=== PATIENT | female | born 1975 | race Asian ===

== ENCOUNTER 2020-10-19 21:41 | Outpatient (REF) | payer OTHER, SELFPAY ==
[2020-10-19 22:44] LABS: Influenza A PCR NEGATIVE (Negative); Influenza B PCR NEGATIVE (Negative); Resp Syncy Virus RNA Qual PCR NEGATIVE (Negative); SARS COV2 PCR INHOUSE NEGATIVE (Negative)
== END 2020-10-19 21:42 | disposition home or self-care (01) ==
LOC: HO.LAB 21:41
PROVIDERS: Visit Provider Internal Medicine
DX: Z20.822 Contact with and (suspected) exposure to COVID-19 (principal)
CPT/HCPCS: 0241U; 36415

== ENCOUNTER 2020-11-02 18:23 | Outpatient (REF) | payer OTHER, SELFPAY ==
[2020-11-02 19:25] LABS: Influenza A PCR NEGATIVE (Negative); Influenza B PCR NEGATIVE (Negative); Resp Syncy Virus RNA Qual PCR NEGATIVE (Negative); SARS COV2 PCR INHOUSE NEGATIVE (Negative)
== END 2020-11-02 18:24 | disposition home or self-care (01) ==
LOC: HO.LAB 18:23
PROVIDERS: PCP Family Medicine; Visit Provider Physician Assistant Medical
DX: Z20.822 Contact with and (suspected) exposure to COVID-19 (principal)
CPT/HCPCS: 0241U; 36415

== ENCOUNTER 2020-11-30 14:43 | Outpatient (REF) | payer OTHER, SELFPAY | END 2020-11-30 14:44 | disposition home or self-care (01) | LOC: HO.LAB 14:43 | PROVIDERS: Visit Provider Internal Medicine | DX: Z13.89 Encounter for screening for other disorder (principal) ==

== ENCOUNTER 2020-11-30 15:02 | Outpatient (REF) | payer OTHER, SELFPAY ==
[2020-11-30 15:45] LABS: COVID-19 Test Negative (Negative)
== END 2020-11-30 15:03 | disposition home or self-care (01) ==
LOC: HO.LAB 15:02
PROVIDERS: Visit Provider Emergency Medicine
DX: J02.9 Acute pharyngitis, unspecified (principal); Z20.822 Contact with and (suspected) exposure to COVID-19
CPT/HCPCS: 36415; 87635; C9803

== ENCOUNTER 2025-06-12 12:18 | Outpatient (REF) | payer OTHER, SELFPAY ==
--- NOTE | ~2025-06-12 | XR_ITS ---
CLINICAL HISTORY: bilateral knee pain Two-view right knee Two-view left knee Comparison: None provided Findings: Bones intact. No dislocations. No significant loss of joint space, osteophytes, or erosions. No joint effusion. No radiopaque foreign body. IMPRESSION: 1. No acute findings. This document has been electronically signed by: Isamar Hunt MD on 06/13/2025 15:14:35
== END 2025-06-12 12:19 | disposition home or self-care (01) ==
LOC: HO.XRAY 12:18
PROVIDERS: PCP Family Medicine; Visit Provider Internal Medicine
DX: M25.562 Pain in left knee (principal); M25.561 Pain in right knee; R59.1 Generalized enlarged lymph nodes
CPT/HCPCS: 73560; 96127

== ENCOUNTER 2025-06-12 12:18 | Outpatient (AMB) | payer OTHER, SELFPAY ==
--- NOTE | 2025-06-12 12:42 | MHC.PC.OV ---
Vital Signs 06/12/25 12:45 Height 5 ft 2 in Weight 167 lb 6 oz BMI 30.6 BP 136/90 H Blood Pressure Location Rt brachial Position Sitting Respiration 18 Pulse 77 Pulse Source Pulse Oximeter Temp 97.1 F Temp Source Temporal Artery Scan Pulse Oximetry (%) 98 Oxygen Delivery Method Room Air Intake Visit Reasons: new patient Pharmacist Required: No Accompanied by: Self / Same As Patient Allergies No Known Allergies Allergy (Verified 06/12/25 13:04) Medication List - Last Reconciled 06/12/25 by Ashley Aguiar MD No Known Home Meds Tobacco use date assessed: 06/12/25 Dental Screening Dental Screen Date: 06/12/25 Did you have a dental visit in the last 12 months?: Yes Did you have a dental problem in the last 6 months where you did not have access to dental care?: No Was dental information given to patient?: Patient has dentist HPI HPI Comments History of Present Illness Details Patient is here to establish care. She complains of a neck lymphadenopathy that has been present for awhile in her posterior neck. Will have an ultrasound. She also complains of bilateral knee pain more prominent when she exercises and more prominent in the left. Has not had a colonoscopy. Pap smear was over 5 years ago. Does not recall her Tdap vaccine. Mammogram is due. She has a vegetarian diet and vitamin B12 will be checked. 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 1. Little interest or pleasure in doing things: not at all 2. Feeling down, depressed, or hopeless: not at all 3. Trouble falling or staying asleep, or sleeping too much: not at all 4. Feeling tired or having little energy: not at all 5. Poor appetite or overeating: not at all 6. Feeling bad about yourself - or that you are a failure or have let yourself or your family down: not at all 7. Trouble concentrating on things, such as reading the newspaper or watching television: not at all 8. Moving or speaking so slowly that other people could have noticed. Or the opposite - being so fidgety or restless that you have been moving around a lot more than usual: not at all 9. Thoughts that you would be better off or of hurting yourself in some way: not at all Total score: 0 Depression Screening Interpretation: Negative Depression Screening Done: Yes 27766 - PHQ-9 Billing: Yes Source: Developed by Drs. Zhou Rushing, Leana Gonzales, Abbe aGn and colleagues, with an educational desmond from [employer]. Thrive Questionnaire Date Thrive assessed: 06/12/25 I am a: Patient What is your living situation today?: I have a steady place to live Within the past 12 months, did the food you bought not last and you didn't have the money to get more?: Never true Within the past 12 months, did you worry whether your food would run out before you got money to buy more?: Never true Do you have trouble paying for medicines?: No Do you have trouble getting transportation to medical appointments?: No Do you have trouble paying your heating and electricity bill?: No Do you have trouble taking care of your child, family member or friend?: No Do you have trouble with day-to-day activities such as bathing, preparing meals, shopping, managing finances, etc.?: No Are you currently unemployed and looking for a job?: No Are you interested in more education?: No Please select the resources that you would like help with: None Currently or been in a relationship where the following occur: No concerns reported THRIVE Score: 0 AUDIT C Alcohol Use Questionnaire (AUDIT-C) 1. How often do you have a drink containing alcohol?: Monthly or less 2. How many drinks containing alcohol do you have on a typical day when you are drinking?: 1 or 2 3. How often do you have six or more drinks on one occasion?: Never Total Score: 1 Score Reviewed/Action Taken: No ROMA-7 AMB Questionnaire ROMA-7 Date ROMA - 7 assessed: 06/12/25 Feeling nervous, anxious, or on edge: 0 = Not at all Not being able to stop or control worryin = Not at all Worrying too much about different things: 0 = Not at all Trouble relaxin = Not at all Being so restless that it is hard to sit still: 0 = Not at all Becoming easily annoyed or irritable: 0 = Not at all Feeling afraid as if something awful might happen: 0 = Not at all Total ROMA-7 score (0-4 normal; 5-9 mild; 10-14 moderate; 15-21 severe): 0 Source: Developed by Drs. Zhou Rushing, Leana Gonzales, Abbe Gan and colleagues, with an educational desmond from [employer]. ROMA-7 Assessment Billing ROMA-7 Assessment Tool: ROMA-7 Assessment 41295 Review of Systems Const All systems reviewed & are unremarkable except as noted in HPI and below Card Denies chest pain at rest, Denies chest pain with activity, Denies edema, Denies irregular heart rhythm, Denies claudication, Denies dyspnea, Denies dyspnea on exertion, Denies orthopnea, Denies paroxysmal nocturnal dyspnea and Denies slow heart rate Resp Denies cough, Denies dyspnea and Denies dyspnea on exertion Physical exam (Primary Care) Vital Signs: Last Vital Signs Temp 97.1 F 06/12/25 12:45 Pulse 77 06/12/25 12:45 Resp 18 06/12/25 12:45 BP 136/90 H 06/12/25 12:45 Pulse Ox 98 06/12/25 12:45 Oxygen Delivery Method Room Air 06/12/25 12:45 BMI result Body Mass Index 30.6 BMI Assessment/Plan discussion: High BMI High, discussed plan: lifestyle, weight reduction, dietary and physical activity Tobacco/Smoking Status: Tobacco use Status Tobacco use date assessed 06/12/25 06/12/25 12:55 Patient Tobacco Use Status Never used Tobacco 06/12/25 12:55 e-Cigarette/Vaping Use Never Used 06/12/25 12:55 PHQ-9: PHQ-9 Score PHQ-9: Total score 0 06/12/25 12:55 Depression Screening Interpretation: Negative Thrive Assessment: Date of Thrive Assessment Date Thrive assessed 06/12/25 06/12/25 12:55 Currently or been in a relationship where the following occur: No concerns reported Neck Neck: Yes lymphadenopathy (posterior neck, nontender, mobile) Resp Effort & Inspection: normal respiratory effort Auscultation: clear to auscultation bilaterally Cardio Jugular venous distension: no JVD Rate: regular rate Rhythm: regular rhythm Heart sounds: S1 normal heart sound present and S2 normal heart sound present Extrem General: Yes full ROM Coding Level of Care Code New Pt Level 3 (15869) Complex EM visit Add On G2211 Diagnoses Left knee pain M25.562 Right knee pain M25.561 Head and neck lymphadenopathy R59.1 Additional Codes PHQ-9 - 27329 - PHQ-9 Billing: Yes ([id number]) ROMA-7 Assessment Billing - ROMA-7 Assessment Tool: ROMA-7 Assessment 41887 ([id number]) Time Spent (min) 20 Assessment & Plan Assessment & Plan (1) Left knee pain: Code(s): M25.562 - Pain in left knee Category: Medical (2) Right knee pain: Code(s): M25.561 - Pain in right knee Category: Medical (3) Head and neck lymphadenopathy: Code(s): R59.1 - Generalized enlarged lymph nodes Category: Medical Plan Labs ordered. X-ray ordered. Ultrasound ordered. Orders: Orders Comprehensive Ute. Panel Fast Today E66.9 - Obesity, unspecified Lipid Panel Today E66.9 - Obesity, unspecified US soft tiss head and/or neck Today R59.1 - Generalized enlarged lymph nodes MM tomosynthesis screening BI Today Z12.31 - Encounter for screening mammogram for malignant neoplasm of breast Complete Blood Count Auto Diff Today E66.9 - Obesity, unspecified Thyroid Stimulating Hormone Today E66.9 - Obesity, unspecified Vitamin B12 and Folate Today E53.8 - Deficiency of other specified B group vitamins, Z78.9 - Other specified health status Vitamin D 25-OH Total Today E55.9 - Vitamin D deficiency, unspecified XR knee LT 2V Today M25.562 - Pain in left knee XR knee RT 2V Today M25.561 - Pain in right knee Referrals Open Access Screening Colonoscopy Referral Z12.12 - Encounter for screening for malignant neoplasm of rectum PHYSICAL EDUCATION DEPARTMENT CHAIR Referral Z12.4 - Encounter for screening for malignant neoplasm of cervix
[2025-06-12 12:45] VITALS: BP 136/90; PULSE 77; RESP 18; TEMP 36.2; O2SAT 98; BMI 30.6
--- OUTSIDE RECORDS SUMMARY | 2025-06-12 14:31 | XMS_ITS | Clinical Summary ---
Author Organization [facility] Address [address] [place] [address] Care Team Providers Care Sap Portal Consultant Name Role Phone Pcp, No Primary Care Provider Unavailabl e Immunizations Immunization Administration Dates Next Due Covid-19 mRNA Primary Series Vaccine - Moderna 0.5 mL Full Dose 06/24/2021 Social History Tobacco Use Types Packs/Day Years Used Date Smoking Tobacco: Never Assessed Comments Unknown Sex and Gender Information Value Date Recorded Sex Assigned at Not on file Legal Sex Female 2:38 PM EDT Gender Identity Not on file Sexual Orientation Not on file Plan of Treatment Health Maintenance Due Date Last Done Comments Hepatitis C Virus Screening 1973 HIV Screening 1986 DTaP/Tdap/Td Vaccines (1 - Tdap) 1992 Hepatitis B Vaccines (1 of 3 - 19+ 3-dose series) 1992 Pap Smear (Ages 21-65) 1994 Mammogram 2013 Colonoscopy 2018 Pneumococcal Vaccines 50+ (1 of 1 - PCV) 2023 Zoster (Shingles) Vaccine (1 of 2) 2023 Influenza Vaccine 04/25/2025 10/28/2019 COVID-19 Vaccine ( - 2024- season) 2025, 10/22/2020 Insurance [facility] PPO Care Teams Sap Portal Consultant Relationship Specialty Start Date End Date Pcp, No PCP - General 04/03/25
--- OUTSIDE RECORDS SUMMARY | 2025-06-12 14:31 | XMS_ITS ---
Author Name [facility] Organization Unknown Care Team Organization Name Specialty Phone Email Start Date End Da te [facility] NO PCP Primary Care 04/03/2025 [facility] 06/24/2021 06/24/2021
== END 2025-06-12 13:34 | disposition home or self-care (01) ==
LOC: HO.HMCH 12:20
PROVIDERS: PCP Family Medicine; Visit Provider Internal Medicine
DX: M25.562 Pain in left knee (principal); M25.561 Pain in right knee; R59.1 Generalized enlarged lymph nodes

== ENCOUNTER → 2025-06-12 13:45 | Outpatient (BNV) | payer OTHER, SELFPAY | PROVIDERS: PCP Family Medicine; Visit Provider Radiology Diagnostic Radiology | DX: M25.569 Pain in unspecified knee (principal) | CPT/HCPCS: 73560 ==

== ENCOUNTER 2025-07-03 07:16 | Outpatient (REF) | payer OTHER, SELFPAY ==
--- NOTE | ~2025-07-03 | MM_ITS ---
EXAMINATION: MM SCREENING DIGITAL BREAST TOMOSYNTHESIS, BILATERAL CLINICAL INFORMATION: Screening. Asymptomatic. COMPARISON: Mammography: Baseline. TECHNIQUE: Digital breast mammography with tomosynthesis is performed in both the craniocaudal and mediolateral oblique views along with computer-aided detection (CAD). FINDINGS: The breasts are heterogeneously dense, which may obscure small masses. Left: Focal asymmetry central inner breast. No suspicious calcifications or other abnormal findings. Right: There are no significant masses, abnormal calcifications, or other abnormalities. MM/MM tomosynthesis screening BI IMPRESSION: Additional imaging is recommended ASSESSMENT: BI-RADS Category 0: Incomplete - Need additional Imaging Evaluation RECOMMENDATION: 1. Additional views of the left breast. 2. Targeted ultrasound if warranted after review of the additional views. 3. Radiology department staff will contact the patient for additional imaging. Additional Imaging required Electronically signed by: Susy Holm DO 07/04/2025 04:32 PM EDT
--- NOTE | ~2025-07-03 | US_ITS ---
EXAMINATION: US SOFT TISSUE HEAD AND NECK CLINICAL INFORMATION: Enlarged lymph nodes. COMPARISON: None available. TECHNIQUE: Linear transducer muse-scale and color Doppler examination with attention to the region of the posterior neck FINDINGS: There is a 1.7 x 0.6 x 1.6 cm solid hyperechoic lesion. This has some central flow. Differential would include a lipoma and atypical appearing lymph node. There is a second 1.1 x 0.3 x 0.7 cm normal-appearing lymph node. This is normal in size, demonstrates normal ultrasound morphology echogenic fatty hilum and normal hilar flow. US/US soft tiss head and/or neck IMPRESSION: 1.7 x 0.6 x 1.6 cm solid hyperechoic lesion, question lipoma versus atypical appearing lymph node. Additional normal-appearing lymph node measuring 1.1 x 0.3 x 0.7 cm. Electronically signed by: Lelia Mckinley MD 07/03/2025 09:37 AM EDT
[2025-07-03 07:56] LABS: MANUAL DIFF FLAG NO
[2025-07-03 08:33] LABS: Hematocrit 42.4 % (37.0-47.0); Hemoglobin 13.6 g/dl (12.0-16.0); Imm Gran Abs Auto 0.05 X10*3/uL (0.00-0.03); Imm Gran Pct Auto 0.5 % (0.0-0.4); Lymphocytes Absolute Auto 1.8 X10*3/uL (1.2-4.9); Mean Corpuscular HGB Conc 32.1 g/dl (31.0-35.0); Mean Corpuscular Hemoglobin 23.2 pg (27.0-33.0); Mean Corpuscular Volume 72.4 fL (80.0-98.0); NRBC Abs Auto 0.000 X10*3/uL (0.0-0.012); NRBC Pct Auto 0.0 /100WBC (0.0-0.2); Platelet Count 399 X10*3/uL (160-400); Red Blood Count 5.86 X10*6/uL (4.20-5.50); White Blood Count 9.5 X10*3/uL (4.8-10.8)
[2025-07-03 09:10] LABS: Alanine Aminotransferase 22 U/L (0-31); Albumin Level 4.1 g/dL (3.5-5.0); Alkaline Phosphatase 69 U/L (39-117); Anion Gap 9 (12-20); Aspartate Amino Transferase 24 U/L (5-31); Blood Urea Nitrogen 16 mg/dL (9-16); Calcium 8.8 mg/dL (8.4-10.2); Carbon Dioxide 26 mmol/L (22-29); Chloride 108 mmol/L (96-108); Cholesterol 222 mg/dL (<200); Estimated Glomerular Filt Rate > 60; HDL Cholesterol 54 mg/dL (>40); Potassium 4.1 mmol/L (3.3-5.1); Sodium 139 mmol/L (135-145); Total Protein 7.6 g/dL (6.5-8.0); Triglycerides 125 mg/dL (<150)
[2025-07-03 09:27] LABS: Thyroid Stimulating Hormone 3.47 uIU/mL (0.32-4.0)
[2025-07-03 09:34] LABS: Folate 9.4 ng/mL (> or = 4.0); Vitamin B12 447 pg/mL (200-900)
== END 2025-07-03 07:17 | disposition home or self-care (01) ==
LOC: HO.MAMMO 07:16
PROVIDERS: PCP Internal Medicine; Visit Provider Internal Medicine
DX: Z12.31 Encounter for screening mammogram for malignant neoplasm of breast (principal); E66.9 Obesity, unspecified; E11.9 Type 2 diabetes mellitus without complications; E53.8 Deficiency of other specified B group vitamins; E55.9 Vitamin D deficiency, unspecified; R59.1 Generalized enlarged lymph nodes; Z78.9 Other specified health status
CPT/HCPCS: 36415; 76536; 77063; 77067; 80053; 80061; 82306; 82607; 82746; 83036; 84443; 85025

== ENCOUNTER → 2025-07-03 07:57 | Outpatient (BNV) | payer OTHER, SELFPAY | PROVIDERS: PCP Internal Medicine; Visit Provider Radiology Diagnostic Radiology | DX: Z12.31 Encounter for screening mammogram for malignant neoplasm of breast (principal) | CPT/HCPCS: 77063; 77067 ==

== ENCOUNTER 2025-08-11 10:48 | Outpatient (REF) | payer OTHER, SELFPAY ==
--- NOTE | ~2025-08-11 | MM_ITS ---
EXAMINATION(S): 1. MM DIAGNOSTIC DIGITAL BREAST TOMOSYNTHESIS, LEFT 2. TARGETED ULTRASOUND OF THE LEFT BREAST CLINICAL INFORMATION: Callback from screening for left breast findings: asymmetry in the lower breast on the MLO view and asymmetry in the medial breast on the CC view. COMPARISON: July 03, 2025 TECHNIQUE: Digital breast tomosynthesis is performed in full field ML 90 degrees along with computer-aided detection (CAD). Synthesized 2D images are generated from the tomosynthesis. Spot compression tomosynthesis were obtained. FINDINGS: BREAST COMPOSITION: There are scattered areas of fibroglandular density. LEFT BREAST: Previously suggested asymmetry in the lower breast middle depth on MLO view and in the medial breast middle depth on the CC view are pliable with spot compression, and likely represented overlapping fibroglandular breast tissue. Targeted ultrasound of the left breast was performed at the location of the mammographic finding. The survey throughout the lower inner quadrant did not reveal suspicious sonographic findings. MM/MM tomosynthesis diagnostic LT IMPRESSION: LEFT BREAST: Negative, no evidence of malignancy. Normal interval follow-up is recommended in 12 months. ASSESSMENT: BI-RADS: Category 1: Negative RECOMMENDATION: 1 year F/U Results were provided to the patient at time of visit by the technologist. This patient's information was entered into a reminder system with a target due date for their next mammogram. Electronically signed by: Justin Keys MD 08/11/2025 11:28 AM [facility] [place]
== END 2025-08-11 10:49 | disposition home or self-care (01) ==
LOC: HO.MAMMO 10:48
PROVIDERS: PCP Internal Medicine; Visit Provider Internal Medicine
DX: N64.89 Other specified disorders of breast (principal); Z00.01 Encounter for general adult medical examination with abnormal findings; Z23 Encounter for immunization; R59.1 Generalized enlarged lymph nodes
CPT/HCPCS: 76642; 77061; 77065; 90471; 90715; 96127

== ENCOUNTER → 2025-08-11 11:20 | Outpatient (BNV) | payer OTHER, SELFPAY | PROVIDERS: PCP Internal Medicine; Visit Provider Radiology Body Imaging | DX: R92.8 Other abnormal and inconclusive findings on diagnostic imaging of breast (principal) | CPT/HCPCS: 76642; 77061; 77065 ==

== ENCOUNTER 2025-08-11 11:34 | Outpatient (AMB) | payer OTHER, SELFPAY ==
[2025-08-11 11:50] VITALS: BP 150/90; PULSE 77; RESP 18; O2SAT 99; BMI 31.0
--- NOTE | 2025-08-11 11:50 | A.OFFPC_ITS ---
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 Accompanied by: Self / Same As Patient Allergies No Known Allergies Allergy (Verified 08/11/25 12:35) Medication List - Last Reconciled 08/11/25 by Ashley Aguiar MD No Known Home Meds Tobacco use date assessed: 08/11/25 Dental Screening Dental Screen Date: 08/11/25 Did you have a dental visit in the last 12 months?: Yes Did you have a dental problem in the last 6 months where you did not have access to dental care?: No Was dental information given to patient?: Patient has dentist HPI HPI Comments History of Present Illness Details The patient is a 49-year-old female presenting for an annual physical examination. Her blood pressure today was elevated at 150/90 mmHg, which is higher than a previous borderline reading. The patient notes current stressors, including a home renovation and the stress of a breast ultrasound preceding the visit. She has a neck mass in which ultrasound shows atypical lymph node versus lipoma and I refer her to surgery. She reports persistent knee pain following an injury over the summer. She states she stopped exercising to allow it to heal, but an attempt to resume exercise caused the pain to recur, and it has not resolved since. Symptoms are aggravated by bending the knee and descending stairs. Recent blood work revealed a severe vitamin D deficiency and elevated cholesterol. Her glucose level was normal. Past surgical history is significant only for an ankle surgery. Her mother had congenital hypothyroidism, pancreatic cancer, and diabetes. The patient has never smoked and drinks wine on holidays and special occasions. - Breast cancer screening: The patient c ompleted a mammogram and breast ultrasound today, with normal results. - Immunizations: The patient received a Tdap vaccine today. - She has already had her flu vaccine fo r the season. - RSV and Shingrix vaccines were recomme nded and can be obtained at a pharmacy. - Colon cancer screening: The patient baltazar s a colonoscopy scheduled for September. - Cervical cancer screening: The patient needs to reschedule a canceled Pap smear appointment with her ESTIMATING ENGINEER. - Cardiovascular risk: The patient's 10- year [place] Risk Score for a heart attack or stroke is 1.5%, which is very low. - Health Counseling: Advised to reduce c offee and salt intake for blood pressure management and to be mindful of diet for cholesterol. 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 1. Little interest or pleasure in doing things: not at all 2. Feeling down, depressed, or hopeless: not at all 3. Trouble falling or staying asleep, or sleeping too much: not at all 4. Feeling tired or having little energy: not at all 5. Poor appetite or overeating: not at all 6. Feeling bad about yourself - or that you are a failure or have let yourself or your family down: not at all 7. Trouble concentrating on things, such as reading the newspaper or watching television: not at all 8. Moving or speaking so slowly that other people could have noticed. Or the opposite - being so fidgety or restless that you have been moving around a lot more than usual: not at all 9. Thoughts that you would be better off or of hurting yourself in some way: not at all Total score: 0 Depression Screening Interpretation: Negative Depression Screening Done: Yes 80097 - PHQ-9 Billing: Yes Source: Developed by Drs. Zhou Rushing, Leana Gonzales, Abbe Gan and colleagues, with an educational desmond from [employer]. Thrive Questionnaire Date Thrive assessed: 06/11/25 I am a: Patient What is your living situation today?: I have a steady place to live Within the past 12 months, did the food you bought not last and you didn't have the money to get more?: Never true Within the past 12 months, did you worry whether your food would run out before you got money to buy more?: Never true Do you have trouble paying for medicines?: No Do you have trouble getting transportation to medical appointments?: No Do you have trouble paying your heating and electricity bill?: No Do you have trouble taking care of your child, family member or friend?: No Do you have trouble with day-to-day activities such as bathing, preparing meals, shopping, managing finances, etc.?: No Are you currently unemployed and looking for a job?: No Are you interested in more education?: No Please select the resources that you would like help with: None Currently or been in a relationship where the following occur: No concerns reported THRIVE Score: 0 ROMA-7 AMB Questionnaire ROMA-7 Date RMOA - 7 assessed: 06/12/25 Feeling nervous, anxious, or on edge: 0 = Not at all Not being able to stop or control worryin = Not at all Worrying too much about different things: 0 = Not at all Trouble relaxin = Not at all Being so restless that it is hard to sit still: 0 = Not at all Becoming easily annoyed or irritable: 0 = Not at all Feeling afraid as if something awful might happen: 0 = Not at all Total ROMA-7 score (0-4 normal; 5-9 mild; 10-14 moderate; 15-21 severe): 0 Source: Developed by Drs. Zhou Rushing, Leana Gonzales, Abbe Gan and colleagues, with an educational desmond from [employer]. ROMA-7 Assessment Billing ROMA-7 Assessment Tool: RMOA-7 Assessment 58604 Review of Systems Const All systems reviewed & are unremarkable except as noted in HPI and below Card Denies chest pain at rest, Denies chest pain with activity, Denies edema, Denies irregular heart rhythm, Denies claudication, Denies dyspnea, Denies dyspnea on exertion, Denies orthopnea, Denies paroxysmal nocturnal dyspnea and Denies slow heart rate Resp Denies cough, Denies dyspnea and Denies dyspnea on exertion GI Denies abdominal pain, Denies change in bowel habits, Denies excessive flatus, Denies nausea and Denies vomiting Neuro Denies behavioral changes and Denies lack of coordination Psych Denies behavioral changes Physical exam (Primary Care) Vital Signs: Last Vital Signs Pulse 77 08/11/25 11:50 Resp 18 08/11/25 11:50 BP 150/90 H 08/11/25 11:50 Pulse Ox 99 08/11/25 11:50 Oxygen Delivery Method Room Air 08/11/25 11:50 BMI result Body Mass Index 31.0 Tobacco/Smoking Status: Tobacco use Status Tobacco use date assessed 08/11/25 08/11/25 11:58 Patient Tobacco Use Status Never used Tobacco 08/11/25 11:58 e-Cigarette/Vaping Use Never Used 08/11/25 11:58 PHQ-9: PHQ-9 Score PHQ-9: Total score 0 08/11/25 12:36 Depression Screening Interpretation: Negative Thrive Assessment: Date of Thrive Assessment Date Thrive assessed 06/11/25 08/11/25 11:58 Currently or been in a relationship where the following occur: No concerns reported [facility] Head: Yes normal to inspection, Yes normocephalic and Yes atraumatic Ears: external ears normal Eyes General: appearance normal, both eyes and all related structures Eyelids: Yes eyelids normal Conjunctivae: conjunctivae normal Neck Neck: Yes normal visual inspection and Yes supple Resp Effort & Inspection: normal respiratory effort Auscultation: clear to auscultation bilaterally Cardio Jugular venous distension: no JVD Rate: regular rate Rhythm: regular rhythm Heart sounds: S1 normal heart sound present and S2 normal heart sound present GI Inspection: Yes normal to inspection Palpation (GI): Soft to palpation and nontender Auscultation: normal bowel sounds Skin General skin exam: no rashes or lesions noted Neuro General: no focal motor deficits Extrem General: Yes full ROM Psych Appearance: grossly normal Immunizations Boostrix Tdap 2.5 Lf unit-8 mcg-5 Lf/0.5 mL intramuscular syringe Performing Provider: Ashley Aguiar MD [facility] [place] [facility] Administered by: SHRUTHI Thompson on 08/11/25 13:02 Dose Route Admin Location Dispensed Lot Number Expiration Date NDC Air Valve Repairer 0.5 mL IM Left Deltoid 0.5 mL [id number] 12/20/27 02588-879-79 [place] Total Dispensed Waste 0.5 mL 0 % VIS Given Date VIS Provided VIS Publication Date 08/11/25 Single Vaccine 21 Eligibility Eligibility Date Funding Source Not [facility] Eligible 08/11/25 Private Coding Level of Care Code Est Pt Prev Care 40-64y(46750) Diagnoses Physical exam Z00.00 Head and neck lymphadenopathy R59.1 Additional Codes ROMA-7 Assessment Billing - ROMA-7 Assessment Tool: ROMA-7 Assessment 92331 ([id number]) PHQ-9 - 54614 - PHQ-9 Billing: Yes ([id number]) Time Spent (min) 30 Assessment & Plan Assessment & Plan (1) Physical exam: Code(s): Z00.00 - Encounter for general adult medical examination without abnormal findings Category: Medical (2) Head and neck lymphadenopathy: Code(s): R59.1 - Generalized enlarged lymph nodes Category: Medical Plan Plan 1. Physical exam Continue yearly mammogram. Pap smear pending. Colonoscopy scheduled for next year. The patient's blood pressure was elevated at 150/90 mmHg. Given potential contributing factors of stress, the plan is to monitor. The patient was advised to reduce her intake of coffee and salt over the next three weeks. An appointment will be made for a blood pressure check in three weeks, and medication will be considered if it remains elevated. A Tdap vaccine was administered. The patient was counseled to obtain the RSV and Shingrix vaccines from a pharmacy. The patient was reminded to proceed with her colonoscopy scheduled for September and to reschedule her canceled Pap smear appointment. 2. Vitamin D Deficiency The patient's lab results show a vitamin D level of less than 20 ng/mL, indicating a deficiency. A prescription for vitamin D 2000 units once daily will be provided. 3. Hypercholesterolemia Although cholesterol levels were elevated, the patient's 10-year [place] Risk Score for a cardiovascular event is very low at 1.5%. Therefore, pharmacologic treatment is not recommended at this time. The patient was advised to monitor her diet. 4. Pain In Joint, Knee For the patient's persistent knee pain, conservative management will be pursued. Topical Voltaren gel was recommended. Physical therapy was discussed as a future option. A follow-up appointment for the knee is scheduled in six months, which the patient can cancel if the issue resolves. 5. Localized Swelling, Mass And Lump, Neck A head and neck ultrasound revealed a finding with a differential of lipoma versus atypical lymph node. While the patient's normal blood work is reassuring, a definitive diagnosis has not been made. A referral will be made to surgery for evaluation. Orders: Orders TDaP Immunization Today Z23 - Encounter for immunization Referrals General Surgery Referral R59.1 - Generalized enlarged lymph nodes
== END 2025-08-11 13:06 | disposition home or self-care (01) ==
LOC: HO.HMCH 11:35
PROVIDERS: PCP Internal Medicine; Visit Provider Internal Medicine
DX: Z00.00 Encounter for general adult medical examination without abnormal findings (principal); R59.1 Generalized enlarged lymph nodes; Z23 Encounter for immunization

== ENCOUNTER 2025-09-08 14:12 | Outpatient (AMB) | payer OTHER, SELFPAY ==
--- NOTE | 2025-09-08 14:45 | MHC.OFFVIS ---
Vital Signs 09/08/25 14:55 Height 5 ft 2 in Weight 172 lb BMI 31.5 Respiration 16 Pulse 72 Intake Visit Reasons: Generalized enlarged lymph nodes Intake Note: Patient is seen in office for evaluation and treatment of enlarged lymph nodes of the neck. Pt c/o: had felt a lump on the neck and had imaging done, denies any symptoms u/s:07/03/25 [employer] [facility] Consultant Required: No Accompanied by: Self / Same As Patient Allergies No Known Allergies Allergy (Verified 09/08/25 14:54) Medication List - Last Reconciled 09/08/25 by Syd Vogel MD cholecalciferol (vitamin D3) 50 mcg PO DAILY 90 days losartan 25 mg PO DAILY 90 days HPI Comments Details: 49-year-old female patient presenting for evaluation of a lump located in the posterior right neck. She is uncertain how long as it has been present but denies any symptoms associated with the lump. She does not think the lump has increased in size at all since 1st being noted. Workup with an ultrasound of the neck did confirm a soft tissue mass measuring 1.7 x 0.6 x 1.6 cm felt to be solid and hypoechoic within the subcutaneous tissue. The differential included lipoma or atypical appearing lymph node an additional normal-appearing lymph node measuring 1.1 x 0.3 x 0.7 cm was also identified. She reports that she has had this for many years and has not changed. She presents today to discuss further management of this palpable lump. 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 Cognitive needs: No Hearing needs: No Vision needs: No Review of Systems Const All systems reviewed & are unremarkable except as noted in HPI and below Physical Exam Vital Signs: Last Vital Signs Pulse 72 09/08/25 14:55 Resp 16 09/08/25 14:55 BMI result Body Mass Index 31.5 Const General: healthy appearing Nutritional Appearance: well nourished Orientation/consciousness: patient oriented x3 Neck Other: Palpable soft tissue subcutaneous mass mobile within the subcutaneous tissue measuring approximately 1.5 cm in diameter, nontender to palpation, most consistent with a lipoma located to the right of midline in the posterior neck. Neck images:  1. Site of palpable subcutaneous nodule consistent with lipoma. No overlying skin changes are appreciated. Lesion is nontender to palpation. Resp Effort & Inspection: normal respiratory effort Skin Other: Warm, dry, no rash Neuro General: patient oriented x3 Extrem Other: No edema Assessment & Plan Assessment & Plan (1) Lipoma: Code(s): D17.9 - Benign lipomatous neoplasm, unspecified Category: Medical Qualifiers: Lipoma location: neck Qualified Code(s): D17.0 - Benign lipomatous neoplasm of skin and subcutaneous tissue of head, face and neck Plan 49-year-old female patient presenting with a soft tissue mass located in the posterior right neck which is currently asymptomatic. Review of an ultrasound study performed on 07/03/2025 reveals a subcutaneous hypoechoic lesion measuring approximately 1.7 cm. On examination there is a soft tissue superficial mass within the subcutaneous tissue which is very mobile and most consistent with a lipoma. We discussed excision of the lesion but as this has remained stable in size and not causing any symptoms she is comfortable with watching the lump. She is welcome to return should she develop symptoms or if the lesion appears to be increasing in size. Coding Level of Care Code New Pt Level 4 (68561) Diagnoses Lipoma of neck D17.0 Lipoma location: neck
[2025-09-08 14:55] VITALS: PULSE 72; RESP 16; BMI 31.5
--- OUTSIDE RECORDS SUMMARY | 2025-09-08 20:39 | XMS_ITS | Clinical Summary ---
Author Organization Formerly [facility] Address [address] [place] [address] Care Team Providers Care Commercial Hvac Service Technician Name Role Phone Pcp, No Primary Care [...] 2023 Influenza Vaccine 04/25/2025 10/28/2019 COVID-19 Vaccine (3 - 2024- season) 2025, 10/22/2020 RSV Vaccine 50 years and old er and Patients (1 - 1-dose 75+ series) 2048 Insurance [facility] PPO Care Teams Commercial Hvac Service Technician Relationship Specialty Start Date End Date Pcp, No PCP - General 04/03/25
== END 2025-09-08 15:09 | disposition home or self-care (01) ==
LOC: HO.HGS 14:13
PROVIDERS: PCP Internal Medicine; Visit Provider Surgery
DX: D17.0 Benign lipomatous neoplasm of skin and subcutaneous tissue of head, face and neck (principal)
CPT/HCPCS: 99204